=== PATIENT | male | born 1980 | race Caucasian/White ===

== ENCOUNTER 2024-08-16 14:25 | Emergency (ER) | payer SELFPAY ==
--- OUTSIDE RECORDS SUMMARY | 2024-08-16 14:27 | XMS REPORT | Continuity of Care Document ---
Author Name Unknown Address [address] [facility] [address] [place] [address] [facility] thconnect Address [address] [facility] [address] [place] [address] Care Team Providers Care Medical Representative Name Role Phone Aishwarya Lindsey M.D. Primary Care Physician [phone] Vital Signs Vital Name Observation Time Observation Value Comments S ource Heart Rate 2024-04-29 11:32:00 99.00 /min Maria Teresa Santoyo Respiratory Rate 2024-04-29 11:32:00 Hermes Santoyo BP Systolic 2024-04-29 11:32:00 119 mm[Hg] Scott Santoyo BP Diastolic 2024-04-29 11:32:00 80 mm[Hg] Rajiv Santoyo Weight Measured 2024-04-29 11:32:00 179.60 pounds Hermes Santoyo Height Measured 2024-04-29 11:32:00 73.00 inches Hermes Santoyo Body Temperature 2024-04-29 11:32:00 98.30 degrees Hermes Santoyo Encounters Start Date/Time End Date/Time Encounter Type Admission Type Attending [facility] Facility Care Department Encounter ID Source 2024-05-13 10:32:30 2024-05-13 10:32:30 Outpatient SFA SFA [id number] Hermes Santoyo 2024-04-29 13:10:34 2024-04-29 13:10:34 Outpatient SFA SFA [id number] Hermes Santoyo 2024-04-29 00:00:00 2024-04-29 00:00:00 Outpatient Visit SFA [id number] Hermes Santoyo 2023-05-30 13:37:16 2023-05-30 13:37:16 Outpatient SFA SFA [id number] Hermes Santoyo Results Test Description Test Time Test Comments Results Result Co mments Source Hermes SantoyoCBC W/AUTO [id number] 00:00:00* Test Item Value Reference Range Interpretation Comme nts WBC (test code = 1001) 12.8 K/UL RBC (test code = 1002) 4.53 M/UL HEMOGLOBIN (test code = 1003) 14.3 G/DL HEMATOCRIT (test code = 1004) 41.2 % MCV (test code = 1005) 90.9 fL MCH (test code = 1006) 31.6 PG MCHC (test code = 1007) 34.7 G/DL RDW (test code = 1038) 13.1 % NEUTROPHILS (test code = 1008) 38.7 % LYMPHOCYTES (test code = 1010) 49.6 % MONOCYTES (test code = 1011) 9.9 % EOSINOPHILS (test code = 1012) 0.6 % BASOPHILS (test code = 1013) 0.9 % IMMATURE GRANULOCYTES (test code = 1036) 0.3 % NUCLEATED RBCS (test code = 1065) 0.0 /100WBC'S PLATELET COUNT (test code = 1015) 527 K/UL ABSOLUTE NEUTROPHILS (test c ode = 1066) 4.95 K/UL ABSOLUTE LYMPHOCYTES (test c ode = 1067) 6.33 K/UL ABSOLUTE MONOCYTES (test cod e = 1068) 1.26 K/UL ABSOLUTE EOSINOPHILS (test c ode = 1040) 0.08 K/UL ABSOLUTE BASOPHILS (test cod e = 1069) 0.11 K/UL ABS IMMATURE GRANULOCYTES (t est code = 1020) 0.04 K/UL ABS NUCLEATED RBCS (test cod e = 76963) 0.00 K/UL COMMENTS (test code = 1016) (NOTE) Hermes SantoyoCOMPREHENSIVE METABOLIC [id number] 00:00:00* Test Item Value Reference Range Interpretation Comme nts GLUCOSE (test code = 2217) 113 MG/DL BUN (test code = 2208) 10 MG/DL CREATININE (test code = 2214) 0.94 MG/DL eGFR (2020 CKD-EPI) (test code = 65378) 104 ML/MIN/1.73 CALC BUN/CREAT (test code = 2235) 11 RATIO SODIUM (test code = 2231) 139 MEQ/L POTASSIUM (test code = 2228) 4.2 MEQ/L CHLORIDE (test code = 2215) 100 MEQ/L CARBON DIOXIDE (test code = 2206) 23 MEQ/L CALCIUM (test code = 2209) 9.7 MG/DL PROTEIN, TOTAL (test code = 2229) 7.3 G/DL ALBUMIN (test code = 2201) 3.8 G/DL CALC GLOBULIN (test code = 2240) 3.5 G/DL CALC A/G RATIO (test code = 2234) 1.1 RATIO BILIRUBIN, TOTAL (test code = 2207) 0.7 MG/DL ALKALINE PHOSPHATASE (test code = 2204) 61 U/L AST (test code = 2218) 56 U/L ALT (test code = 2219) 134 U/L Hermes Santoyo Notes Date/Time Note Provider Source Hermes Santoyo [facility]
[2024-08-16] MEDS ORDERED: NA CHLORIDE 0.9% 1,000 ML ONE (16:10)
--- NOTE | 2024-08-16 16:11 | RAD REPORT ---
Procedure: Chest Single View HISTORY: Weakness and dizziness COMPARISON: none FINDINGS: The lungs appear clear of acute infiltrate. Lungs are hyperaerated No significant pleural effusion noted. The heart is normal size. IMPRESSION: No acute abnormality is displayed.
[2024-08-16 17:15] LABS: Absolute Basophils 0.1 K/uL (0-0.5); Absolute Eosinophils 0.1 K/uL (0-0.5); Absolute Lymphocytes (CBC) 3.9 K/uL (0.7-4.9); Absolute Monocytes 1.1 K/uL (0.1-1.3); Absolute Neutrophil 4.9 K/uL (1.8-8.0); Basophils % 0.8 % (0-1.3); Eosinophils % 0.8 % (0-4.4); Hematocrit 45.8 % (39.6-49.0); Hemoglobin 15.5 g/dL (13.6-17.9); Lymphocytes % 38.8 % (15.3-44.8); MCH 30.9 pg (27.0-35.0); MCHC 33.9 g/dL (32.0-36.0); MCV 91.2 fL (80-100); MPV 7.9 fL (7.6-11.3); Monocytes % 10.7 % (3.3-12.3); Neutrophils % 48.9 % (41.7-73.7); Platelets 304 thou/uL (152-406); RBC Red Blood Cell Count 5.03 M/uL (4.33-5.43); Red Cell Distribution Width 14.2 % (12.1-15.2)
[2024-08-16 17:18] LABS: Urine Bilirubin NEGATIVE (Negative); Urine Blood Negative (Negative); Urine Clarity Extremely Turbid (Clear); Urine Color Yellow (Yellow); Urine Glucose NEGATIVE (Negative); Urine Ketones TRACE (Negative); Urine Microscopic Reflex YN NO UMIC; Urine Nitrite NEGATIVE (Negative); Urine Protein 1+ (Negative); Urine Urobilinogen 1+ (Normal); Urine pH 5.5 (5.0-7.0)
[2024-08-16 17:18] LABS: PT Prothrombin Time 12.6 SECONDS (9.4-12.5); Protime INR 1.13
[2024-08-16 17:32] LABS: Albumin 4.2 g/dL (3.4-5.0); Albumin/Globulin Ratio 1.1 (1.1-1.8); Anion Gap 10.7 mEq/L (5.0-15.0); Bilirubin Total 0.3 mg/dL (0.2-1.0); Globulin 3.9 g/dL (2.3-3.5); Potassium 3.7 mEq/L (3.5-5.1); Protein, Total 8.1 g/dL (6.4-8.2)
--- NOTE | 2024-08-16 18:18 | EDPHYS ---
Physician Documentation [facility] Name: Michael Oreilly Age: 43 yrs Sex: Male : 1980 Arrival Date: 08/16/2024 Time: 14:25 Bed 14 Private MD: ED Physician Marvin Nance HPI: 08/16 17:32 This 43 yrs old Male presents to ER via Ambulatory with complaints of Numbness Of Arm - rt Left [id number]. 17:32 Patient presents to the ED with reported numbness to the right hand for about 2 months. rt States that he was feeling lightheaded earlier today. Patient reports having a pain to the left ear also starting today. Patient states that he was recently in the hospital in [place] for reported staph in his bloodstream. Received antibiotics and was subsequently discharged. Patient denies other acute complaints at this time, symptoms are moderate in severity, no other aggravating or alleviating factors.. Historical: - Allergies: 14:52 No Known Allergies; iw - Home Meds: 14:52 None [Active]; iw - PMHx: 14:52 fatty liver; iw - PSHx: 14:52 None; iw - Immunization history:: Adult Immunizations not up to date. - Infectious Disease History:: Denies. - Social history:: Smoking status: Patient reports the use of cigarette tobacco products. - Family history:: not pertinent. ROS: 17:32 Constitutional: Negative for fever, chills, and weight loss, Cardiovascular: Negative rt for chest pain, palpitations, and edema, Respiratory: Negative for shortness of breath, cough, wheezing, and pleuritic chest pain, Abdomen/GI: Negative for abdominal pain, nausea, vomiting, diarrhea, and constipation, Skin: Negative for injury, rash, and discoloration, 17:32 ENT: Positive for ear pain, Negative for sore throat, 17:32 Neuro: Positive for dizziness, numbness, Negative for Exam: 17:32 Constitutional: This is a well developed, well nourished patient who is awake, alert, rt and in no acute distress. Head/Face: Normocephalic, atraumatic. Chest/axilla: Normal chest wall appearance and motion. Nontender with no deformity. No lesions are appreciated. Cardiovascular: Regular rate and rhythm with a normal S1 and S2. No gallops, murmurs, or rubs. Normal PMI, no JVD. No pulse deficits. Respiratory: Lungs have equal breath sounds bilaterally, clear to auscultation and percussion. No rales, rhonchi or wheezes noted. No increased work of breathing, no retractions or nasal flaring. Abdomen/GI: Soft, non-tender, with normal bowel sounds. No distension or tympany. No guarding or rebound. No evidence of tenderness throughout. Skin: Warm, dry with normal turgor. Normal color with no rashes, no lesions, and no evidence of cellulitis. MS/ Extremity: Pulses equal, no cyanosis. Neurovascular intact. Full, normal range of motion. Neuro: Awake and alert, GCS 15, oriented to person, place, time, and situation. Cranial nerves II-XII grossly intact. Motor strength 5/5 in all extremities. Sensory grossly intact. Cerebellar exam normal. Normal gait. 17:32 ECG was reviewed by the Attending Physician. Vital Signs: 14:50 BP 114 / 81; Pulse 104; Resp 18; Pulse Ox 100% on R/A; Weight 90.72 kg; Height 6 ft. 0 iw in. ; Pain 0/10; 16:30 BP 120 / 91; Pulse 90; Resp 18; Pulse Ox 100% on R/A; db 17:00 BP 129 / 89; Pulse 81; Resp 18; Pulse Ox 95% ; db 18:00 BP 128 / 83; Pulse 87; Resp 16; Pulse Ox 100% on R/A; db 14:50 Body Mass Index 27.13 (90.72 kg, 182.88 cm) iw 14:50 Pain Scale: Adult iw MDM: 14:53 Medical Screening Exam initiated rt 19:16 Differential diagnosis: Paresthesia, electrolyte disturbance, bacteremia. Data rt reviewed: vital signs, nurses notes, lab test result(s), radiologic studies. Consideration of Admission/Observation Escalation of care including admission/observation considered. Patient with acute kidney injury, unclear chronicity of this. I discussed with patient, initially agreed to admission to the hospital, however, he subsequently left without informing me before I could get him admitted to the hospital or have a discussion regarding the risks and benefits.. I considered the following discharge prescriptions or medication management in the emergency department Medications were administered in the Emergency Department. See MAR. Counseling: I had a detailed discussion with the patient and/or guardian regarding the historical points, exam findings, and any diagnostic results supporting the discharge/admit diagnosis, lab results, the need for further work-up and treatment in the hospital. 08/16 15: Order name: Blood Culture Adult (2) rt 08/16 15: Order name: CBC with Diff; Complete Time: 17:31 rt 08/16 15: Order name: CMP; Complete Time: 17:34 rt 08/16 15: Order name: Lactate w/ 2H reflex if indic.; Complete Time: 17:31 rt 08/16 15: Order name: Protime (+inr); Complete Time: 17:31 rt 08/16 15: Order name: Ptt, Activated; Complete Time: 17:31 rt 08/16 15: Order name: Urinalysis w/ reflexes; Complete Time: 17:31 rt 08/16 15: Order name: CPK; Complete Time: 17:34 rt 08/16 15: Order name: Chest Single View XRAY; Complete Time: 16:12 rt 08/16 15: Order name: EKG; Complete Time: 15:01 rt 08/16 15: Order name: Accucheck; Complete Time: 17:04 rt 08/16 15: Order name: Cardiac monitoring; Complete Time: 17:04 rt 08/16 15: Order name: EKG - Nurse/Tech; Complete Time: 17:04 rt 08/16 15: Order name: IV Saline Lock - Large Bore; Complete Time: 17:04 rt 08/16 15: Order name: Labs collected and sent; Complete Time: 17:04 rt 08/16 15: Order name: O2 Per Protocol; Complete Time: 17:04 rt 08/16 15: Order name: O2 Sat Monitoring; Complete Time: 17:04 rt 08/16 15: Order name: Vital Signs; Complete Time: 17:04 rt EC:32 Rate is 81 beats/min. Rhythm is regular, Normal Sinus Rhythm with No ectopy. QRS Mcloud rt is Normal. HI interval is normal. QRS interval is normal. QT interval is normal. No Q waves. T waves are Normal. No ST changes noted. Interpreted by me. Administered Medications: 16:52 Drug: NS 0.9% IV 1000 ml IV at 1 bolus Per protocol; to be given as a bolus over 60 db minutes Route: IV; Rate: 1 bolus; Site: right forearm; 18:28 Follow up: Response: No adverse reaction; IV Status: Completed infusion; IV Intake: db 1000ml Disposition Summary: 08/16/24 18:17 Discharge Ordered Notes: Location: Home rt Problem: new rt Symptoms: have improved rt Condition: Stable rt Diagnosis - acute kidney injury rt Followup: rt - With: Private Physician - When: 2 - 3 days - Reason: Forms: - Medication Reconciliation Form rt - Antibiotic Education rt - Prescription Opioid Use rt - Patient Portal Instructions rt - Leadership Thank You Letter rt Signatures: Dispatcher [employer] Bhumika Hernandez, RN RN iw Rosetta Tompkins RN RN Marvin Liao MD MD rt Corrections: (The following items were deleted from the chart) 15:01 15:01 BLOOD CULTURE*+BA.LAB.BRZ ordered. EDMS EDMS 15:01 15:01 CBC+H.LAB.BRZ ordered. EDMS EDMS 15:01 15:01 COMPREHENSIVE METABOLIC PANEL+C.LAB.BRZ ordered. EDMS EDMS 15:01 15:01 LACTATE+C.LAB.BRZ ordered. EDMS EDMS 15:01 15:01 PROTIME (+INR)+COAG.LAB.BRZ ordered. EDMS EDMS 15:01 15:01 PTT, ACTIVATED+COAG.LAB.BRZ ordered. EDMS EDMS 15:01 15:01 Urinalysis+U.LAB.BRZ ordered. EDMS EDMS 15:01 15:01 CREATINE PHOSPHOKINASE+C.LAB.BRZ ordered. EDMS EDMS
--- NOTE | 2024-08-16 18:18 | ER ---
Nurse's Notes [facility] Name: Michael Oreilly Age: 43 yrs Sex: Male : 1980 Arrival Date: 08/16/2024 Time: 14:25 Bed 14 Private MD: Diagnosis: acute kidney injury Presentation: 08/16 14:50 Chief complaint: Patient states: felt light headed today at work, my right hand is numb iw X 2 months , my left ear feels messed up. Coronavirus screen: At this time, the client does not indicate any symptoms associated with coronavirus-19. Ebola Screen: No symptoms or risks identified at this time. Initial Sepsis Screen: Does the patient meet any 2 criteria? No. Patient's initial sepsis screen is negative. Does the patient have a suspected source of infection? No. Patient's initial sepsis screen is negative. Risk Assessment: Do you want to hurt yourself or someone else? Patient reports no desire to harm self or others. Onset of symptoms was June 2024. 14:50 Method Of Arrival: Ambulatory iw 14:50 Acuity: SHARRON 3 iw Historical: - Allergies: 14:52 No Known Allergies; iw - Home Meds: 14:52 None [Active]; iw - PMHx: 14:52 fatty liver; iw - PSHx: 14:52 None; iw - Immunization history:: Adult Immunizations not up to date. - Infectious Disease History:: Denies. - Social history:: Smoking status: Patient reports the use of cigarette tobacco products. - Family history:: not pertinent. Screenin:50 [facility] ED Fall Risk Assessment (Adult) History of falling in the last 3 months, db including since admission No falls in past 3 months (0 pts) Confusion or Disorientation No (0 pts) Intoxicated or Sedated No (0 pts) Impaired Gait No (0 pts) Mobility Assist Device Used No (0 pt) Altered Elimination No (0 pt) Score/Fall Risk Level 0 - 2 = Low Risk Oriented to surroundings, Maintained a safe environment. Abuse screen: Denies threats or abuse. Denies injuries from another. Nutritional screening: No deficits noted. Tuberculosis screening: No symptoms or risk factors identified. Assessment: 16:35 Reassessment: Patient appears in no apparent distress at this time. Patient and/or db family updated on plan of care and expected duration. Pain level reassessed. Patient is alert, oriented x 3, equal unlabored respirations, skin warm/dry/pink. General: Appears in no apparent distress. comfortable, Behavior is calm, cooperative. Pain: Complains of pain in left arm. Neuro: Level of Consciousness is awake, alert, obeys commands, Oriented to person, place, time, situation. 17:32 Reassessment: Patient appears in no apparent distress at this time. Patient and/or db family updated on plan of care and expected duration. Pain level reassessed. Patient is alert, oriented x 3, equal unlabored respirations, skin warm/dry/pink. USING CELL PHONE. 18:15 Reassessment: Patient appears in no apparent distress at this time. Patient and/or db family updated on plan of care and expected duration. Pain level reassessed. NOTIFIED DR. LEIGH PT REQUEST TO LEAVE. PT STATES NEEDS TO GET HOME TO [facility]. PT REPORTS THAT HE WILL FOLLOWUP IF SYMPTOMS GET WORSE OF CONTINUE. Vital Signs: 14:50 BP 114 / 81; Pulse 104; Resp 18; Pulse Ox 100% on R/A; Weight 90.72 kg; Height 6 ft. 0 iw in. ; Pain 0/10; 16:30 BP 120 / 91; Pulse 90; Resp 18; Pulse Ox 100% on R/A; db 17:00 BP 129 / 89; Pulse 81; Resp 18; Pulse Ox 95% ; db 18:00 BP 128 / 83; Pulse 87; Resp 16; Pulse Ox 100% on R/A; db 14:50 Body Mass Index 27.13 (90.72 kg, 182.88 cm) iw 14:50 Pain Scale: Adult iw ED Course: 14:28 Patient arrived in ED. ra3 14:47 Marvin Leigh MD is Attending Physician. rt 14:52 Triage completed. iw 14:53 Arm band placed on. iw 16:00 Chest Single View XRAY In Process Unspecified. EDMS 16:08 Rosetta Tompkins, FINN is Primary Nurse. db 16:35 First set of blood cultures drawn by me. db 16:50 Patient has correct armband on for positive identification. Bed in low position. Call db light in reach. Side rails up X 1. Client placed on continuous cardiac and pulse oximetry monitoring. NIBP monitoring applied. shelter monitor on. Pulse ox on. NIBP on. Pillow given. 16:52 Initial lab(s) drawn, by me, sent to lab. Second set of blood cultures drawn by me. db Inserted saline lock: 20 gauge in right forearm, using aseptic technique. Blood collected. Flushed with 10 mL NS. 18:23 Provided Education on: DISCHARGE. db 18:23 No provider procedures requiring assistance completed. IV discontinued, intact, db bleeding controlled, No redness/swelling at site. Administered Medications: 16:52 Drug: NS 0.9% IV 1000 ml IV at 1 bolus Per protocol; to be given as a bolus over 60 db minutes Route: IV; Rate: 1 bolus; Site: right forearm; 18:28 Follow up: Response: No adverse reaction; IV Status: Completed infusion; IV Intake: db 1000ml Medication: 17:06 VIS not applicable for this client. db Intake: 18:28 IV: 1000ml; Total: 1000ml. db Outcome: 18:17 Discharge ordered by . rt 18:23 Discharged to home ambulatory, db 18:23 Condition: stable 18:23 Discharge instructions given to patient, Instructed on discharge instructions, follow up and referral plans. 18:29 Patient left the ED. db Signatures: Dispatcher [employer] EDBhumika Cool, Rosetta Meyers RN, RN RN Marvin Liao MD MD rt Elyssa French ra3
[2024-08-16 18:59] VITALS: BP 128/83; O2SAT 100
--- NOTE | 2024-08-18 12:42 | EKG ---
Test Date: 2024-08-16 Test Time: 16:43:15 [employer]ed Circuit [employer] Designer: MACY MEASUREMENT RESULTS: Intervals: Rate: 81 FL: 130 QRSD: 96 QT: 348 QTc: 404 [place]: P: 68 FL: 130 QRS: 77 T: 68 INTERPRETIVE STATEMENTS: Normal sinus rhythm with sinus arrhythmia Early repolarization Normal ECG No previous ECG available for comparison Electronically Signed On 08-18-24 12:39:29 SUPERINTENDENT PRESSURE by Yves Montiel
== END 2024-08-16 18:29 | disposition home or self-care (01) ==
LOC: ER 14:25
DX: N17.9 Acute kidney failure, unspecified (principal)
CPT/HCPCS: 36415; 71045; 80053; 81003; 82550; 83605; 85025; 85610; 85730; 87040; 93005; 96360; 96361; 99285; J7030